=== PATIENT | female | born 1955 | race Caucasian/White ===

== ENCOUNTER → 2021-03-29 09:09 | Outpatient (REF) | payer MEDICARE, SELFPAY | LOC: ANHLAB 09:09 | PROVIDERS: PCP Obstetrics & Gynecology; Visit Provider Nurse Practitioner | DX: D23.111 Other benign neoplasm of skin of right upper eyelid, including canthus (principal) | CPT/HCPCS: 88304; 88305 ==

== ENCOUNTER 2023-02-05 07:00 | Outpatient (NON) | payer MEDICARE, SELFPAY | END 2023-02-05 07:01 | disposition home or self-care (01) | LOC: ANHLAB 02-07 15:20 | PROVIDERS: PCP Obstetrics & Gynecology; Visit Provider Nurse Practitioner | DX: L57.8 Other skin changes due to chronic exposure to nonionizing radiation (principal) | CPT/HCPCS: 88305 ==

== ENCOUNTER 2023-02-27 08:00 | Outpatient (NON) | payer MEDICARE, SELFPAY | END 2023-02-27 08:01 | disposition home or self-care (01) | LOC: ANHLAB 02-28 14:33 | PROVIDERS: PCP Obstetrics & Gynecology; Visit Provider Nurse Practitioner | DX: D22.39 Melanocytic nevi of other parts of face (principal) | CPT/HCPCS: 88305 ==